=== PATIENT | female | born 1945 | race African-American/Black ===

== ENCOUNTER 2019-02-14 16:40 | Emergency (ER) | payer MEDICARE, MEDICAID ==
[2019-02-14] MEDS ORDERED: Ketorolac Tromethamine 30 MG/ML VIAL ONE (18:41)
== END 2019-02-14 19:10 | disposition home or self-care (01) ==
LOC: ERS 16:40
DX: M17.0 Bilateral primary osteoarthritis of knee (principal)
CPT/HCPCS: 96372; 99283; J1885

== ENCOUNTER 2023-01-18 14:02 | Emergency (ER) | payer OTHER, MEDICARE, MEDICAID | END 2023-01-18 16:35 | disposition home or self-care (01) | LOC: ERS 14:02 | DX: M25.561 Pain in right knee (principal); B35.4 Tinea corporis; N64.59 Other signs and symptoms in breast ==